=== PATIENT | male | born 2000 | race Caucasian/White ===

== ENCOUNTER 2023-05-14 05:37 | Emergency (ER) | payer MEDICAID ==
[~2023-05-14] VITALS: Ht 175.3 cm; Wt 70.0 kg
[2023-05-14 05:49] VITALS: O2SAT 98
[2023-05-14] MEDS ORDERED: KETOROLAC 60MG/2ML VIAL IM ONE (07:00)
[2023-05-14] MEDS ORDERED: IBUP-2028 PO (08:27)
[2023-05-14] MEDS ORDERED: T3 PO (08:27)
[2023-05-14 08:47] VITALS: BP 134/87; PULSE 89; RESP 19; TEMP 97.9
== END 2023-05-14 08:51 | disposition home or self-care (01) ==
LOC: ER 05:37
DX: M25.512 Pain in left shoulder (principal); R07.89 Other chest pain; M54.2 Cervicalgia; V89.2XXA Person injured in unspecified motor-vehicle accident, traffic, initial encounter; W22.10XA Striking against or struck by unspecified automobile airbag, initial encounter; Y93.89 Activity, other specified; Y92.89 Other specified places as the place of occurrence of the external cause; Y99.8 Other external cause status
CPT/HCPCS: 71045; 73030; 93005; 96372; 99284; J1885; Z7610